=== PATIENT | male | born 1985 | race African-American/Black ===

== ENCOUNTER → 2017-01-03 | Outpatient (CLI) | payer OTHER ==
--- NOTE | 2017-01-03 12:43 | VAS ---
HISTORY: Right lower extremity pain. Study: Right lower extremity pain. Comparison: None. TECHNIQUE: Multiple palmer scale and color flow Doppler images of the deep venous system were obtained of the right lower extremity. FINDINGS: The deep venous system of the right lower extremity was evaluated from the level of the common femora l vein through the popliteal vein. Normal color flow and augmentation can be observed. In addition, normal compression is seen throughout the deep venous system. IMPRESSION: Negative for right lower extremity DVT. Reported By:
== END ==
LOC: RAD 11:40
DX: G90.521 Complex regional pain syndrome I of right lower limb (principal)
CPT/HCPCS: 93971